=== PATIENT | female | born 1960 | race Caucasian/White ===

== ENCOUNTER 2019-02-22 07:15 | Day surgery (SDC) | payer MEDICARE, MEDICAID ==
[2019-02-06 09:14] LABS: BASOPHILS # (AUTO) 0.1 X10'3 (0-0.2); BASOPHILS % (AUTO) 0.9 % (0-1); EOSINOPHILS # (AUTO) 0.3 X10'3 (0-0.9); EOSINOPHILS % (AUTO) 3.3 % (0-6); LYMPHOCYTES # (AUTO) 1.3 X10'3 (1.1-4.8); LYMPHOCYTES % (AUTO) 14.8 % (21-51); MEAN CORPUSCULAR HEMOGLOBIN 28.3 PG (27.0-31.0); MEAN CORPUSCULAR HGB CONC 31.6 g/dL (33.0-36.5); MEAN CORPUSCULAR VOLUME 89.7 FL (78-98); MEAN PLATELET VOLUME 8.4 FL (7.4-10.4); MONOCYTES # (AUTO) 0.3 X10'3 (0-0.9); MONOCYTES % (AUTO) 3.7 % (2-12); NEUTROPHILS # (AUTO) 6.8 X10'3 (1.8-7.7); NEUTROPHILS % (AUTO) 77.3 % (42-75); PRE OP HEMATOCRIT 38.9 % (35.0-45.0); PRE OP HEMOGLOBIN 12.3 g/dL (12.0-16.0); PRE OP PLATELET COUNT 245 X10'3 (140-440); RED BLOOD COUNT 4.34 X10'6 (4.20-5.60); RED CELL DISTRIBUTION WIDTH 18.4 % (11.5-14.5)
[2019-02-06 09:16] LABS: CLARITY,URINE CLOUDY (Clear); COLOR,URINE YELLOW (Yellow); GLUCOSE, URINE NEGATIVE (Neg); KETONES,URINE NEGATIVE (Neg); LEUKOCYTE ESTERASE ,URINE TRACE (Neg); NITRITES, URINE NEGATIVE (Neg); OCCULT BLOOD,URINE LARGE (Neg); PROTEIN,URINE 100 mg/dl (Neg); UROBILINOGEN,URINE 0.2 E.U/dL (0.2-1.0)
[2019-02-06 09:27] LABS: PRE OP PROTIME 22.2 SECONDS (9.0-12.0)
[2019-02-06 09:29] LABS: PRE OP INR 2.3 INR
[2019-02-06 09:37] LABS: UA COLLECTION TYPE CLN CATCH MIDSTREAM
[2019-02-06 09:38] LABS: ALBUMIN 3.5 G/DL (3.4-5.0); ALBUMIN/GLOBULIN RATIO 0.9 (1.1-1.5); ALKALINE PHOSPHATASE 114 IU/L (46-116); BLOOD UREA NITROGEN 17 MG/DL (7-18); BUN/CREATININE RATIO 9.7 (6.6-38.0); CALCIUM 9.1 MG/DL (8.5-10.1); CHLORIDE 108 MMOL/L (99-107); CREATININE 1.76 MG/DL (0.40-0.90); PRE OP ALT 25 U/L (30-65); PRE OP ANION GAP 11 (8-16); PRE OP AST 12 U/L (10-37); PRE OP BILIRUB, TOTAL 0.3 MG/DL (0.0-1.0); PRE OP GLUCOSE 109 MG/DL (70-104); PRE OP POTASSIUM 3.5 MMOL/L (3.4-5.1); PRE OP SODIUM 143 MMOL/L (135-145); TOTAL CARBON DIOXIDE 23.6 MMOL/L (24-32); TOTAL PROTEIN 7.6 G/DL (6.4-8.2); eGFR 30 ML/MIN
[2019-02-06 09:39] LABS: RBC,URINE 20-50 /HPF (0-2)
[2019-02-06 09:40] LABS: BACTERIA,URINE FEW /HPF (Neg); SQUAMOUS EPITHELIAL CELL,UR MANY /LPF (FEW); WBC,URINE 0-4 /HPF (0-4)
[2019-02-06 09:41] LABS: WBC CLUMPS,URINE FEW /HPF (NEGATIVE)
[~2019-02-22] VITALS: Ht 165.1 cm; Wt 125.0 kg
[2019-02-22] VITALS (9 sets, daily range): BP systolic 130–156; BP diastolic 71–101
[~2019-02-22 07:15] MED LIST: ACET-2119 PO; ALLO300T8 PO; ASPI-529 PO; ATOR20TA66 PO; CHOL10002 PO; CYCL5TAB PO; FOLI1TAB16 PO; FURO20TA4 PO; HYDR500C18 PO; INSU300I SQ; LIRA0.6P PO; MULT1TAB74 PO; OMEG1000 PO; OMEP40CA13 PO; SODI650T29 PO; VITA-268 PO; WARF-55 PO; famotidine 20mg tablet PO ONE; ringers solution, lacted 1,000 ML IV SCH
[2019-02-22] MEDS ORDERED: LIDOcaine 1% (10mg/ml) 2ml vial ONE (07:40)
[2019-02-22 08:36] LABS: ALBUMIN 3.3 G/DL (3.4-5.0); ALBUMIN/GLOBULIN RATIO 0.8 (1.1-1.5); ALKALINE PHOSPHATASE 101 IU/L (46-116); BLOOD UREA NITROGEN 28 MG/DL (7-18); BUN/CREATININE RATIO 13.9 (6.6-38.0); CALCIUM 8.6 MG/DL (8.5-10.1); CHLORIDE 108 MMOL/L (99-107); CREATININE 2.02 MG/DL (0.40-0.90); PRE OP ALT 26 U/L (30-65); PRE OP ANION GAP 12 (8-16); PRE OP AST 8 U/L (10-37); PRE OP BILIRUB, TOTAL 0.5 MG/DL (0.0-1.0); PRE OP POTASSIUM 3.6 MMOL/L (3.4-5.1); PRE OP SODIUM 141 MMOL/L (135-145); TOTAL CARBON DIOXIDE 21.5 MMOL/L (24-32); TOTAL PROTEIN 7.2 G/DL (6.4-8.2); eGFR 25 ML/MIN
[2019-02-22 08:44] LABS: PRE OP GLUCOSE 124 MG/DL (70-104)
[2019-02-22 08:56] LABS: PRE OP PARTIAL THROMB. TIME 28 SECONDS (22-32)
[2019-02-22] MEDS ORDERED: ringers solution, lacted 1,000 ML IV SCH (09:19)
[2019-02-22] MEDS ORDERED: proCHLORperazine 10 MG/2 ml inj IV PRN (09:20)
[2019-02-22] MEDS ORDERED: ondansetron/PF 4mg/2ml inj IV PRN (09:20)
[2019-02-22] MEDS ORDERED: morphine 4 MG/ML inj SYRINge IV PRN ×2 (09:20)
[2019-02-22] MEDS ORDERED: meperidine/PF 25mg/ml syringe IV PRN ×3 (09:20)
[2019-02-22] MEDS ORDERED: sevoflurane 250ml liquid IH ONE (09:34)
[2019-02-22] MEDS ORDERED: fentaNYL/PF 50MCG/1 ML 2ML syringe ONE (09:39)
[2019-02-22] MEDS ORDERED: midazolam 2 mg/2 ml injection ONE (09:39)
[2019-02-22] MEDS ORDERED: propofol inj 20 ML IV ONE (09:46)
[2019-02-22] MEDS ORDERED: rocuronium 10mg/ml inj IV ONE (09:46)
[2019-02-22] MEDS ORDERED: neostigmine methylsulfate 1 MG/ML 10ml vial ONE (10:18)
[2019-02-22] MEDS ORDERED: glycopyrrolate 0.2mg/ml inj ONE (10:18)
--- NOTE | 2019-02-22 10:33 | NUR ---
Received from OR via [facility] , accompanied by Anesthesiologist DANIEL and report given by Anesthesiolgist. PATIENT [id number] PIV IN RIGHT HAND RUNNING LR AT 100. DENIES PAIN. PERIPAD IN PLACE. VSS. 10L MASK ON WITH 98% SATURATIONS.
--- NOTE | 2019-02-22 10:33 | NUR ---
Received from OR via [facility] , accompanied by Anesthesiologist SHAHNAZ and report given by Anesthesiolgist. PATIENT WITH VSS AT THIS TIME. 20G PIV IN RIGHT HAND RUNNING LR AT 100. DENIES PAIN. ONE KIM PAD IN PLACE WITH NO DRAINAGE PRESENT. 10L MASK ON WITH 98% SATURATIONS. Addendum: 02/22/19 at 1047 by Vikas Toure RN, RN Amended: Links added.
--- NOTE | 2019-02-22 10:42 | NUR ---
116 BLOOD GLUCOSE UPON ARRIVAL FROM OR. MD SANCHEZ NOTIFIED. NO ORDERS. Addendum: 02/22/19 at 1047 by Vikas Toure RN, RN Amended: Links added.
[2019-02-22] MEDS ORDERED: clindamycin-Cleocin 900mg/D5W 50 ML IV ONE (13:30)
[2019-02-22] MEDS ORDERED: NORMAL SALINE IV ONE (13:30)
[2019-02-22] MEDS ORDERED: GENTAMICIN IV ONE (13:30)
--- NOTE | 2019-02-22 14:03 | NUR ---
ALL DC CRITERIA HAS BEEN MET. IV TAKEN OUT WITHOUT COMPLICATIONS. ALL INSTRUCTIONS COVERED AND ALL QUESTIONS ANSWERED. DRESSINGS CDI. OUT VIA WHEELCHAIR TO PERSONAL VEHICLE WHERE PATIENT WAS SECURED IN AND DRIVEN HOME BY FAMILY. AMBULATED, VOIDED, DRESSED, DRAINAGE CONTROLLED. ALL CRITERIA HAS BEEN MET FOR DC HOME. Addendum: 02/22/19 at 1410 by Vikas Toure RN, RN Amended: Links added.
== END 2019-02-22 14:03 | disposition home or self-care (01) ==
LOC: PAS 07:15
PROVIDERS: ATTEND Obstetrics & Gynecology
DX: C54.1 Malignant neoplasm of endometrium (principal); N84.0 Polyp of corpus uteri; G47.30 Sleep apnea, unspecified; K21.9 Gastro-esophageal reflux disease without esophagitis; M10.9 Gout, unspecified; E11.22 Type 2 diabetes mellitus with diabetic chronic kidney disease; N18.9 Chronic kidney disease, unspecified; E66.01 Morbid (severe) obesity due to excess calories; Z68.45 Body mass index [BMI] 70 or greater, adult; Z90.5 Acquired absence of kidney; Z79.82 Long term (current) use of aspirin; Z79.899 Other long term (current) drug therapy
CPT/HCPCS: 36415; 58558; 80053; 81001; 82948; 85025; 85610; 85730; J1580; J2001; J2250; J2704; J2710; J3010; J7030; J7120; 88305; A4355; A4618; A6258; J3490

== ENCOUNTER → 2024-07-09 | Outpatient (CLI) | payer MEDICARE, MEDICAID ==
[~2024-07-09] MED LIST changes: +CYCL-920 PO; -CYCL5TAB PO; -FOLI1TAB16 PO; +FOLI1TAB27 PO; +MULT-620 PO; -MULT1TAB74 PO; -OMEP40CA13 PO; +OMEP40CA21 PO; -famotidine 20mg tablet PO ONE; -ringers solution, lacted 1,000 ML IV SCH
== END | disposition home or self-care (01) ==
LOC: VAS 08:38
PROVIDERS: ATTEND Internal Medicine
DX: I82.532 Chronic embolism and thrombosis of left popliteal vein (principal); I82.512 Chronic embolism and thrombosis of left femoral vein; I87.2 Venous insufficiency (chronic) (peripheral); R60.0 Localized edema
CPT/HCPCS: 93971